=== PATIENT | female | born 1985 | race Caucasian/White ===

== ENCOUNTER 2020-10-16 22:35 | Emergency (ER) | payer OTHER ==
[2020-10-16 23:13] LABS: BASOPHIL 1.2 % (0-2); EOSINOPHIL 2.4 % (0-5); HCT 35.1 % (37.0-47.0); HGB 12.5 g/dl (12.5-16.0); LYMPHOCYTE 31.3 % (15-48); MCH 38.7 pg (25.0-31.0); MCHC 35.6 g/dL (32.0-36.0); MCV 108.7 fL (78.0-100.0); MONOCYTE 8.7 % (0-12); MPV 9.8 fL (6.0-9.5); NEUTROPHIL 56.1 % (41-80); NRBC 0; PLT 321 K/uL (150-400); RBC 3.23 M/uL (4.20-5.40); RDW 14.2 % (11.5-14.0); WBC 6.6 K/uL (4.0-10.5)
[2020-10-16 23:31] LABS: ALBUMIN 3.6 g/dL (3.4-5.0); BILIRUBIN - TOTAL 0.3 mg/dL (0.2-1.0); BUN/CREAT RATIO (CALC) 24.6 RATIO; CREATININE 0.57 mg/dL (0.51-0.95); GLOBULIN (CALCULATION) 4.1 g/dL; TOTAL PROTEIN 7.7 g/dL (6.4-8.2)
== END 2020-10-17 00:01 | disposition home or self-care (01) ==
LOC: FER 22:35
PROVIDERS: Emergency Medicine
DX: K92.1 Melena (principal); K92.0 Hematemesis; R19.7 Diarrhea, unspecified; F17.200 Nicotine dependence, unspecified, uncomplicated
CPT/HCPCS: 36415; 74022; 80053; 83690; 85025